=== PATIENT | male | born 1945 | race Caucasian/White ===

== ENCOUNTER 2017-02-06 23:55 | Emergency (ER) | payer MEDICARE ==
[~2017-02-06] VITALS: Ht 182.9 cm; Wt 87.7 kg
[2017-02-07] VITALS: BP 116/60; PULSE 65; RESP 16; TEMP 97.6; O2SAT 95
--- NOTE | 2017-02-07 00:24 | RADRPT ---
EXAM DATE/TIME: 02/07/2017 00:07 [place] COMPARISON: No previous studies available for comparison. INDICATIONS : Altered mental status. RADIATION DOSE: 56.35 CTDIvol (mGy) MEDICAL HISTORY : ETOH SURGICAL HISTORY : None. ENCOUNTER: Initial ACUITY: 1 day PAIN SCALE: 0/10 LOCATION: cranial TECHNIQUE: Multiple contiguous axial images were obtained of the head. Using automated exposure control and adj ustment of the mA and/or kV according to patient size, radiation dose was kept as low as reasonably a chievable to obtain optimal diagnostic quality images. DICOM format image data is available electro nically for review and comparison. FINDINGS: There is no evidence for intracranial hemorrhage, mass effect, mass lesions, or edema. The visualize d bony structures appear intact. Moderate degree of brain atrophy is seen. Moderate periventricular white matter changes are seen nonspecific mostly consistent with chronic small vessel ischemic change s. There are no signs of acute infarction for technique. There is also mild mucoperiosteal thickenin g within the eithmoid air cells. CONCLUSION: Chronic and small vessel ischemic changes without any evidence for acute hemorrhage o r mass effect. Sonny Alves MD on February 07, 2017 at 0:21 Board Certified Radiologist. This report was verified electronically.
--- NOTE | 2017-02-07 00:34 | PD ---
HPI Chief Complaint: Alcohol/Drug Intoxication Time Seen by Provider: 00:05 Travel History International Travel<30 days: No Contact w/Intl Traveler<30days: No Traveled to known affect area: No History of Present Illness HPI This 71-year-old man, presents to the emergency department via EMS. He apparently was at a bar and the conveyor feeder found him laying down on the stools. [place] Man reported to EMS that he drank some, but did not seem overtly intoxicated prior to that. Patient states that he drank bourbon and beer. Denies any recent illness or injury. Denies any medical problems. States he is feeling well and healthy. He drove to the bar. He has no complaints now. History Past Medical History Medical History: Denies Significant Hx Influenza Vaccination: No Past Surgical History Surgical History: No Previous Surgery Social History Alcohol Use: Yes (daily) Tobacco Use: No Allergies-Medications Reported Meds & Prescriptions Reported Meds & Active Scripts Active No Active Prescriptions or Reported Medications Review of Systems ROS Limitations: Intoxication Physical Exam Narrative GENERAL: Well-appearing 71-year-old man, no acute distress. SKIN: Focused skin assessment warm/dry. HEAD: Atraumatic. Normocephalic. EYES: Pupils equal and round. No scleral icterus. No injection or drainage. ENT: No nasal bleeding or discharge. Mucous membranes pink and moist. NECK: Trachea midline. No JVD. CARDIOVASCULAR: Regular rate and rhythm. No murmur appreciated. RESPIRATORY: No accessory muscle use. Clear to auscultation. Breath sounds equal bilaterally. GASTROINTESTINAL: Abdomen soft, non-tender, nondistended. Hepatic and splenic margins not palpable. MUSCULOSKELETAL: No obvious deformities. No clubbing. No cyanosis. No edema. NEUROLOGICAL: Awake and alert. Little bit slow to respond to questions. Slurred speech. No obvious cranial nerve deficits. Strength full and equal upper and lower extremities. Data Data Last Documented VS Vital Signs Date Time Temp Pulse Resp B/P (MAP) Pulse Ox O2 Delivery O2 Flow Rate FiO2 02/07/17 01:19 98 Room Air 02/07/17 00:00 97.6 65 16 116/60 (78) Orders Orders Electrocardiogram (02/07/17 00:05) Complete Blood Count With Diff (02/07/17 00:05) Comprehensive Metabolic Panel (02/07/17 00:05) Ct Brain W/O Iv Contrast(Rout) (02/07/17 00:05) Ecg Monitoring (02/07/17 00:05) Iv Access Insert/Monitor (02/07/17 00:05) Oximetry (02/07/17 00:05) Alcohol (Ethanol) (02/07/17 00:05) Labs Laboratory Tests Test 02/07/17 00:32 White Blood Count 6.1 TH/MM3 Red Blood Count 4.37 MIL/MM3 Hemoglobin 13.4 GM/DL Hematocrit 40.0 % Mean Corpuscular Volume 91.6 FL Mean Corpuscular Hemoglobin 30.8 PG Mean Corpuscular Hemoglobin Concent 33.6 % Red Cell Distribution Width 13.4 % Platelet Count 196 TH/MM3 Mean Platelet Volume 8.8 FL Neutrophils (%) (Auto) 58.7 % Lymphocytes (%) (Auto) 26.9 % Monocytes (%) (Auto) 10.3 % Eosinophils (%) (Auto) 2.9 % Basophils (%) (Auto) 1.2 % Neutrophils # (Auto) 3.6 TH/MM3 Lymphocytes # (Auto) 1.7 TH/MM3 Monocytes # (Auto) 0.6 TH/MM3 Eosinophils # (Auto) 0.2 TH/MM3 Basophils # (Auto) 0.1 TH/MM3 CBC Comment DIFF FINAL Differential Comment Blood Urea Nitrogen 16 MG/DL Creatinine 0.92 MG/DL Random Glucose 99 MG/DL Total Protein 6.3 GM/DL Albumin 3.4 GM/DL Calcium Level 8.1 MG/DL Alkaline Phosphatase 63 U/L Aspartate Amino Transf (AST/SGOT) 15 U/L Alanine Aminotransferase (ALT/SGPT) 17 U/L Total Bilirubin 0.3 MG/DL Sodium Level 140 MEQ/L Potassium Level 3.9 MEQ/L Chloride Level 107 MEQ/L Carbon Dioxide Level 26.7 MEQ/L Anion Gap 6 MEQ/L Estimat Glomerular Filtration Rate 81 ML/MIN Ethyl Alcohol Level 241 MG/DL [facility] Medical Decision Making Medical Screen Exam Complete: Yes Emergency Medical Condition: Yes Interpretation(s) My review of EKG: Normal sinus rhythm at a rate of 63, normal axis, normal intervals, QT intervals prolonged at [address]: Chronic small vessel ischemic changes without any evidence of acute hemorrhage or mass effect. CBC unremarkable. CMP unremarkable. Alcohol 241 Differential Diagnosis Intoxication, head injury, stroke, electrolyte abnormality, other Narrative Course Medical decision making This 71-year-old man who presents to the emergency department complaining of seems like intoxication. History is a little bit unclear. No evidence of stroke on exam now. Wasn't really talking for EMS. We'll check all: Will come also check screening labs EKG and CT head. Diagnosis Primary Impression: Alcohol intoxication Additional Instructions: Avoid excessive alcohol use. Follow-up with her primary doctor for not completely well. Return to the emergency department for any new or worsening symptoms. Med/Other Pt SpecificInfo: No Change to Meds Scripts No Active Prescriptions or Reported Meds Disposition: DISCHARGE HOME Condition: Stable Santana Charles MD Feb 07, 2017 00:34
[2017-02-07 00:51] LABS: AUTOMATED NEUTROPHIL # 3.6 TH/MM3 (1.8-7.7); BASOPHIL # 0.1 TH/MM3 (0-0.2); BASOPHIL % 1.2 % (0.0-2.0); EOSINOPHIL # 0.2 TH/MM3 (0-0.4); EOSINOPHIL % 2.9 % (0.0-4.0); HEMOGLOBIN 13.4 GM/DL (13.0-17.0); LYMPH % 26.9 % (9.0-44.0); LYMPHOCYTE # 1.7 TH/MM3 (1.0-4.8); MEAN CELL VOLUME 91.6 FL (80.0-100.0); MEAN CORPUSCULAR HEMOGLOBIN 30.8 PG (27.0-34.0); MEAN CORPUSCULAR HGB CONC 33.6 % (32.0-36.0); MEAN PLATELET VOLUME 8.8 FL (7.0-11.0); MONO % 10.3 % (0.0-8.0); MONOCYTE # 0.6 TH/MM3 (0-0.9); NEUT % 58.7 % (16.0-70.0); PLATELET COUNT 196 TH/MM3 (150-450); RED BLOOD COUNT 4.37 MIL/MM3 (4.50-5.90); RED CELL DISTRIBUTION WIDTH 13.4 % (11.6-17.2); WHITE BLOOD COUNT 6.1 TH/MM3 (4.0-11.0)
[2017-02-07 01:19] VITALS: O2SAT 98
[2017-02-07 02:05] LABS: ALBUMIN 3.4 GM/DL (3.4-5.0); ALKALINE PHOSPHATASE 63 U/L (45-117); ALT (GPT) 17 U/L (12-78); AST (GOT) 15 U/L (15-37); BICARBONATE 26.7 MEQ/L (21.0-32.0); BLOOD UREA NITROGEN 16 MG/DL (7-18); CALCIUM 8.1 MG/DL (8.5-10.1); CHLORIDE 107 MEQ/L (98-107); CREATININE 0.92 MG/DL (0.60-1.30); GLOMERULAR FILTRATION RATE 81 ML/MIN (>89); GLUCOSE,RANDOM 99 MG/DL (74-106); SODIUM (NA) 140 MEQ/L (136-145); TOTAL BILIRUBIN ADULT 0.3 MG/DL (0.2-1.0); TOTAL PROTEIN 6.3 GM/DL (6.4-8.2)
--- NOTE | 2017-02-07 14:43 | EKG ---
Date Performed: 02/07/2017 Time Performed: 00:07:08 PTAGE: 71 years EKG: Sinus rhythm PROLONGED QT INTERVAL ABNORMAL ECG NO PREVIOUS TRACING DOCTOR: Santana Lamb Interpretating Date/Time 02/07/2017 14:41:46
== END 2017-02-07 03:41 | disposition home or self-care (01) ==
LOC: NEPE 23:55
DX: F10.129 Alcohol abuse with intoxication, unspecified (principal); I45.81 Long QT syndrome; Y90.8 Blood alcohol level of 240 mg/100 ml or more
CPT/HCPCS: 70450; 80053; 80307; 85025; 93005